=== PATIENT | male | born 1975 | race American Indian/Alaskan Native ===

== ENCOUNTER 2016-09-06 17:19 | Emergency (ER) | payer BC ==
[2016-09-06] MEDS ORDERED: MOTRIN PO ONE (18:20)
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
[2016-09-06] MEDS ORDERED: BOOSTRIX IM ONE (19:04)
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
[2016-09-06 20:15] VITALS: BP 148/90
[2016-09-06] MEDS ORDERED: NORCO PO ONE (20:23)
== END 2016-09-06 20:40 | disposition home or self-care (01) ==
LOC: ED 17:19
DX: S02.2XXA Fracture of nasal bones, initial encounter for closed fracture (principal); S02.80XA Fracture of other specified skull and facial bones, unspecified side, initial encounter for closed fracture; Z87.891 Personal history of nicotine dependence; Z91.013 Allergy to seafood; Y08.89XA Assault by other specified means, initial encounter; Y93.89 Activity, other specified; Y99.8 Other external cause status; Y92.098 Other place in other non-institutional residence as the place of occurrence of the external cause
CPT/HCPCS: 70150; 70486; 90471; 90715